=== PATIENT | male | born 1985 | race Caucasian/White ===

== ENCOUNTER 2018-10-20 04:23 | Day surgery (SDC) | payer SELFPAY ==
[2018-10-20] MEDS ORDERED: HYDROmorphone 1 MG/ML Syringe IVPUSH PRN (04:43)
[2018-10-20] MEDS ORDERED: Ondansetron 4 MG/2 ML SDV IVPUSH PRN (04:45)
[2018-10-20] MEDS: Lactated Ringers 1,000 ML IV SCH ×3 (05:22→18:57)
[2018-10-20] MEDS: Piperacillin/Tazobactam 3.375 GM in Sodium Chloride 0.9% 50 ML IV SCH ×4 (05:35→23:14)
[2018-10-20] MEDS ORDERED: Lactated Ringers 1,000 ML IV ONE (06:35)
[2018-10-20] MEDS ORDERED: Sodium Chloride 0.9% 10 ML Syringe FLUSH PRN (06:38)
[2018-10-20] MEDS ORDERED: Sodium Chloride 0.9% 10 ML SDV IV PRN (06:38)
[2018-10-20] MEDS ORDERED: Sodium Chloride 0.9% 2.5 ML Syringe FLUSH PRN (06:38)
--- NOTE | 2018-10-20 06:47 | PCM.PREANE ---
Preanesthetic Assessment - Anesthesia/Transfusion/Family Hx Anesthesia History: No Prior Anesthesia Family History of Anesthesia Reaction: No Transfusion History: No Prior Transfusion(s) Intubation History: Unknown - Review of Systems General: No Symptoms Pulmonary: No Symptoms Cardiovascular: No Symptoms Gastrointestinal: Abdominal Pain Neurological: No Symptoms Other: Reports: None - Physical Assessment Pulse: 108 O2 Sat by Pulse Oximetry: 100 Respiratory Rate: 18 Vital Signs: Last Vital Signs Temp 37.7 C 10/20/18 04:30 Pulse 108 H 10/20/18 04:30 Resp 18 10/20/18 04:30 BP 126/70 10/20/18 04:30 Pulse Ox 100 10/20/18 04:30 Height: 6 ft Weight: 68.946 kg ASA Class: 2E Mental Status: Alert & Oriented x3 Airway Class: Mallampati = 2 Dentition: Reports: Normal Dentition Thyro-Mental Finger Breadths: 3 Mouth Opening Finger Breadths: 2 ROM/Head Extension: Full Lungs: Clear to Auscultation, Normal Respiratory Effort Cardiovascular: Regular Rate, Regular Rhythm - Allergies Allergies/Adverse Reactions: Allergies Allergy/AdvReac Type Severity Reaction Status Date / Time No Known Allergies Allergy Verified 10/20/18 05:01 - Blood Blood Available: No - Anesthesia Plan Pre-Op Medication Ordered: None - Acknowledgements Anesthesia Type Planned: General Anesthesia Pt an Appropriate Candidate for the Planned Anesthesia: Yes Alternatives and Risks of Anesthesia Discussed w Pt/Guardian: Yes Pt/Guardian Understands and Agrees with Anesthesia Plan: Yes PreAnesthesia Questionnaire - Past Health History Medical/Surgical History: Denies Medical/Surgical History HEENT History: Reports: None Cardiovascular History: Reports: None Respiratory History: Reports: None Gastrointestinal History: Reports: Other (See Below) (acute appendicitis) Genitourinary History: Reports: None Musculoskeletal History: Reports: None Neurological History: Reports: None Psychiatric History: Reports: None Endocrine/Metabolic History: Reports: None Hematologic History: Reports: None Immunologic History: Reports: None Oncologic (Cancer) History: Reports: None - Infectious Disease History Infectious Disease History: Reports: None - Past Surgical History Head Surgeries/Procedures: Reports: None HEENT Surgical History: Reports: Oral Surgery Cardiovascular Surgical History: Reports: None Respiratory Surgical History: Reports: None GI Surgical History: Reports: None Male Surgical History: Reports: None Neurological Surgical History: Reports: None Oncologic Surgical History: Reports: None - SUBSTANCE USE Smoking Status *Q: Current Every Day Smoker (1 ppd) Tobacco Use Within Last Twelve Months: Cigarettes Recreational Drug Use History: No - HOME MEDS Home Medications: Home Meds . [No Known Home Meds] 10/20/18 [History] - CURRENT (IN HOUSE) MEDS Current Meds: Current Medications Hydromorphone HCl (Dilaudid) 0.5 mg IVPUSH Q1H PRN PRN Reason: Pain Lactated Ringer's (Ringers, Lactated) 1,000 mls @ 125 mls/hr IV ASDIRECTED [facility] Last Admin: 10/20/18 05:22 Dose: 125 mls/hr Piperacillin Sod/Tazobactam (Sod 3.375 gm/ Sodium Chloride) 50 mls @ 100 mls/ hr IV Q6H [facility] Last Admin: 10/20/18 05:35 Dose: 100 mls/hr Lactated Ringer's (Ringers, Lactated) 1,000 mls @ 1,000 mls/hr IV .BOLUS ONE Stop: 10/20/18 07:34 Ondansetron HCl (Zofran) 4 mg IVPUSH Q4H PRN PRN Reason: Nausea Sodium Chloride (Saline Flush) 10 ml FLUSH ASDIRECTED PRN PRN Reason: Keep Vein Open Sodium Chloride (Saline Flush) 2.5 ml FLUSH ASDIRECTED PRN PRN Reason: Keep Vein Open Sodium Chloride (Normal Saline) 10 ml IV ASDIRECTED PRN PRN Reason: IV Use
[2018-10-20] MEDS ORDERED: Propofol 200 MG/20 ML SDV ONE (06:52)
[2018-10-20] MEDS ORDERED: Midazolam 1 MG/ML 2 ML SDV ONE (06:52)
[2018-10-20] MEDS ORDERED: fentaNYL 250 MCG/5 ML SDV ONE ×2 (06:52→08:23)
[2018-10-20] MEDS ORDERED: Dexamethasone 4 MG/ML 5 ML MDV ONE (06:58)
[2018-10-20] MEDS ORDERED: Rocuronium 100 MG/10 ML Syringe ONE (06:58)
[2018-10-20] MEDS ORDERED: Ondansetron 4 MG/2 ML SDV ONE (06:58)
[2018-10-20] MEDS ORDERED: Glycopyrrolate 0.2 MG/ML SDV ONE (06:59)
[2018-10-20] MEDS ORDERED: Neostigmine Methylsulfate 1 MG/ML 5 ML Syringe ONE (06:59)
[2018-10-20] MEDS ORDERED: Bupivacaine 0.5% 10 ML SDV ONE (07:17)
[2018-10-20] MEDS ORDERED: fentaNYL 100 MCG/2 ML SDV IVPUSH PRN ×2 (07:18→08:56)
--- NOTE | 2018-10-20 07:31 | PCM.HP ---
H&P History of Present Illness - General Date of Service: 10/20/18 Admit Problem/Dx: Admission Diagnosis/Problem Admission Diagnosis/Problem Abdominal pain Source of Information: Patient History Limitations: Reports: No Limitations - History of Present Illness Initial Comments - Free Text/Narative: Patient is a 33 umesh old male who presents with acute appendicitis. He was wrestling with his son on Wednesday when he knee-ed him in the right groin. He continued to have discomfort there but then developed severe pain with fever, chills, nausea and vomiting yesterday. He presented to an OSH. He was mildly febrile with a temperature of 100.5 F on arrival. He was given fluids. He had rebound and tenderness in the RLQ. His WBC was normal at 8 but he had a left shift. A CT abdomen/pelvis was performed that showed a 10mm enlarged appendix with fat stranding concerning for appendicitis. He was transferred here for surgical management. Abdomen Pain Score (Numeric/FACES): 5 Back Pain Score (Numeric/FACES): 7 - Related Data Allergies/Adverse Reactions: Allergies Allergy/AdvReac Type Severity Reaction Status Date / Time No Known Allergies Allergy Verified 10/20/18 05:01 Home Medications: Home Meds . [No Known Home Meds] 10/20/18 [History] Past Medical History - Past Health History Medical/Surgical History: Denies Medical/Surgical History HEENT History: Reports: None Cardiovascular History: Reports: None Respiratory History: Reports: None Gastrointestinal History: Reports: Other (See Below) (acute appendicitis) Genitourinary History: Reports: None Musculoskeletal History: Reports: None Neurological History: Reports: None Psychiatric History: Reports: None Endocrine/Metabolic History: Reports: None Hematologic History: Reports: None Immunologic History: Reports: None Oncologic (Cancer) History: Reports: None - Infectious Disease History Infectious Disease History: Reports: None - Past Surgical History Head Surgeries/Procedures: Reports: None HEENT Surgical History: Reports: Oral Surgery Cardiovascular Surgical History: Reports: None Respiratory Surgical History: Reports: None GI Surgical History: Reports: None Male Surgical History: Reports: None Neurological Surgical History: Reports: None Oncologic Surgical History: Reports: None Social & Family History - Tobacco Use Smoking Status *Q: Current Every Day Smoker (1 ppd) Years of Tobacco use: 20 Packs/Tins Daily: 1 - Caffeine Use Caffeine Use: Reports: Soda, Tea - Recreational Drug Use Recreational Drug Use: No H&P Review of Systems - Review of Systems: Review Of Systems: ROS reveals no pertinent complaints other than HPI. Exam - Exam Exam: See Below - Vital Signs Vital Signs: Last Vital Signs Temp 37.7 C 10/20/18 04:30 Pulse 108 H 10/20/18 06:47 Resp 18 10/20/18 06:47 BP 126/70 10/20/18 04:30 Pulse Ox 100 10/20/18 06:47 Weight: 68.946 kg - Exam Quality Assessment: Supplemental Oxygen General: Alert, Oriented, Moderate Distress HEENT: Conjunctiva Clear, Mucosa Moist & [place], Posterior Pharynx Clear Lungs: Clear to Auscultation, Normal Respiratory Effort Cardiovascular: Regular Rate, Regular Rhythm GI/Abdominal Exam: Soft, No Distention, No Mass, Tender (RLQ) Extremities: Normal Inspection - Problem List (1) Appendicitis SNOMED Code(s): 89169452 ICD Code: K37 - UNSPECIFIED APPENDICITIS Status: Acute Current Visit: Yes Problem List Initiated/Reviewed/Updated: Yes Orders Last 24hrs: Active Orders 24 hr Category Date Time Status Admission Status [Patient Status] [ADT] Routine ADT 10/20/18 04:50 Active Antiembolic Devices [RC] PER UNIT ROUTINE Care 10/20/18 06:39 Active RT Incentive Spirometry [RC] Q1HWA Care 10/20/18 06:38 Active Up ad Nalini [RC] ASDIRECTED Care 10/20/18 04:49 Active Verify Patient Consent Obtain [RC] ASDIRECTED Care 10/20/18 06:38 Active NPO [Nothing Per Oral Diet] [DIET] Diet 10/20/18 Breakfast Active HYDROmorphone [Dilaudid] Med 10/20/18 04:43 Active 0.5 mg IVPUSH Q1H PRN Lactated Ringers [Ringers, Lactated] 1,000 ml Med 10/20/18 06:35 Active IV .BOLUS Lactated Ringers [Ringers, Lactated] 1,000 ml Med 10/20/18 04:45 Active IV ASDIRECTED Ondansetron [Zofran] Med 10/20/18 04:45 Active 4 mg IVPUSH Q4H PRN Piperacillin/Tazobactam [Piperacil-Tazobact] 3.375 gm Med 10/20/18 05:00 Active Sodium Chloride 0.9% [Normal Saline] 50 ml IV Q6H Sodium Chloride 0.9% [Normal Saline] Med 10/20/18 06:38 Active 10 ml IV ASDIRECTED PRN Sodium Chloride 0.9% [Saline Flush] Med 10/20/18 06:38 Active 10 ml FLUSH ASDIRECTED PRN Sodium Chloride 0.9% [Saline Flush] Med 10/20/18 06:38 Active 2.5 ml FLUSH ASDIRECTED PRN fentaNYL [Sublimaze] Med 10/20/18 07:18 Active 50 mcg IVPUSH Q5M PRN Peripheral IV Insertion Adult [OM.PC] Routine Oth 10/20/18 06:38 Ordered Sequential Compression Device [OM.PC] Routine Oth 10/20/18 06:38 Ordered Resuscitation Status Routine Resus Stat 10/20/18 06:38 Ordered Medication Orders Fentanyl (Sublimaze) 50 mcg IVPUSH Q5M PRN PRN Reason: Pain (severe 7-10) Stop: 10/20/18 12:00 Hydromorphone HCl (Dilaudid) 0.5 mg IVPUSH Q1H PRN PRN Reason: Pain Lactated Ringer's (Ringers, Lactated) 1,000 mls @ 125 mls/hr IV ASDIRECTED [facility] Last Admin: 10/20/18 05:22 Dose: 125 mls/hr Piperacillin Sod/Tazobactam (Sod 3.375 gm/ Sodium Chloride) 50 mls @ 100 mls/ hr IV Q6H [facility] Last Admin: 10/20/18 05:35 Dose: 100 mls/hr Lactated Ringer's (Ringers, Lactated) 1,000 mls @ 1,000 mls/hr IV .BOLUS ONE Stop: 10/20/18 07:34 Last Admin: 10/20/18 06:59 Dose: 1,000 mls/hr Ondansetron HCl (Zofran) 4 mg IVPUSH Q4H PRN PRN Reason: Nausea Sodium Chloride (Saline Flush) 10 ml FLUSH ASDIRECTED PRN PRN Reason: Keep Vein Open Sodium Chloride (Saline Flush) 2.5 ml FLUSH ASDIRECTED PRN PRN Reason: Keep Vein Open Sodium Chloride (Normal Saline) 10 ml IV ASDIRECTED PRN PRN Reason: IV Use Assessment/Plan Comment:: I explained the pathophysiology of appendicitis. The treatment is removal of the appendix. I will attempt this laparoscopically but will convert to open if I cannot complete it safely. We discussed the procedure, expected perioperative course, and risks including bleeding, infection or damage to surrounding structures. He verbalized understanding and wishes to proceed.
[2018-10-20] MEDS ORDERED: Phenylephrine/Normal Saline 100 MCG/ML 10 ML Syringe ONE (07:57)
--- NOTE | 2018-10-20 08:54 | PCM.OPNOTE ---
- General Post-Op/Procedure Note Date of Surgery/Procedure: 10/20/18 Operative Procedure(s): Laparoscopic appendectomy Findings: Enlarged and inflamed appendix. No evidence of perforation. Pre Op Diagnosis: Appendicitis Post-Op Diagnosis: same Anesthesia Technique: General ET Tube Primary Surgeon: Mara Garcia Pathology: appendix Fluid Replacement, Intraop: 1,800 Output, Urine Amount: 225 EBL in mLs: 5 Condition: Good Free Text/Narrative:: Intake & Output 10/19/18 10/20/18 10/20/18 22:59 06:59 14:59 Intake Total 50 Balance 50
--- NOTE | 2018-10-20 12:47 | OR ---
SURGEON: MARA GARCIA MD DATE OF PROCEDURE: 10/20/2018 PREOPERATIVE DIAGNOSIS: Acute appendicitis. POSTOPERATIVE DIAGNOSIS: Acute appendicitis. PROCEDURE PERFORMED: Laparoscopic appendectomy. PRIMARY SURGEON: Mara Garcia MD. ANESTHESIA: General endotracheal anesthesia. FLUIDS: 1800 mL of crystalloid. ESTIMATED BLOOD LOSS: 5 mL. URINE OUTPUT: 225 mL. FINDINGS: Acutely enlarged and inflamed appendix. No evidence of perforation. COMPLICATIONS: None. INDICATIONS: The patient is a 33-year-old male, who presents with 2 days' worth of severe right lower quadrant pain, fever, chills, nausea, and vomiting. Workup at an outside hospital included a CT scan which showed acute appendicitis. I explained the need for an appendectomy. I will attempt it laparoscopically, but should I be unable to perform it safely, I will convert to open. The patient and I discussed the expected perioperative course and risks including bleeding, infection, or damage to surrounding structures. The patient verbalized understanding and wishes to proceed. PROCEDURE IN DETAIL: The patient was brought into the OR and placed on the OR table in supine position. A time-out was completed verifying the patient's name, age, date of , allergies, and procedure to be performed. General endotracheal anesthesia was induced. The left arm was tucked to the patient's side and a Elkins catheter placed. The abdomen was prepped and draped in usual standard fashion. I anesthetized an area 3 fingerbreadths below the left subcostal margin in the midclavicular line with 0.5% Marcaine plain. A 1 cm incision was made using an 11 blade. I gained entry into the left upper quadrant using a 5 mm optical trocar. All layers of the abdominal wall were visualized upon entry. The abdomen was insufflated. I inserted a 5 mm 30-degree scope into the abdomen. I inspected the area underneath my initial trocar placement and no damage to surrounding structures was noted. A 5 mm trocar was placed just left and lateral of the umbilicus under direct visualization. A 12 mm trocar was placed in the left lower quadrant under direct visualization as well. The patient was placed into a Trendelenburg position and airplaned slightly to the left. I turned my attention to the right lower quadrant. I identified the cecum and followed the tenia down to the base of the appendix. The appendix was retrocecal. I was able to manipulate the appendix and bring it anterior. It appeared grossly enlarged and inflamed, but there was no evidence of perforation. Using a Harmonic scalpel device, I took down the appendiceal mesentery from proximal to distal. There were some small retroperitoneal attachments posteriorly that I was able to take down using a [place] dissector. Once the appendix was free from the appendiceal mesentery, I inspected the base. It appeared healthy and uninvolved. An endoscopic stapling device was placed in the abdomen and used to staple and transect across the base of the appendix. The appendix was then placed in an Endo Catch bag and removed through the 12 mm port site. I inspected my operative field. It was hemostatic and there was no evidence of any fluid in the abdomen. The decision was made not to irrigate. I closed the 12 mm port site with an interrupted 0 Vicryl suture using a Preet- Rod device. The 5 mm trocars were removed under direct visualization and the abdomen allowed to desufflate. The patient was then laid flat. I closed the 12 mm trocar site with interrupted 3-0 Vicryl in the subcutaneous fat layer and the skin was closed with a running 4-0 Monocryl stitch. The 5 mm trocar sites were closed with interrupted 4-0 Monocryl sutures. Steri-Strips and sterile dressings were applied. The patient tolerated the procedure well and was transferred to the PACU in stable condition. All counts were complete and correct at the end of the case. JUAN R BELLA /[id number]
[2018-10-20] MEDS: Acetaminophen/oxyCODONE 325-5 MG Tab PO PRN ×2 (14:43→18:57)
[2018-10-21] MEDS: Lactated Ringers 1,000 ML IV SCH (04:05)
[2018-10-21] MEDS: Piperacillin/Tazobactam 3.375 GM in Sodium Chloride 0.9% 50 ML IV SCH (04:07)
--- NOTE | 2018-10-21 06:43 | PCM48HPAN ---
Post Anesthesia Note - EVALUATION WITHIN 48HRS OF ANESTHETIC Vital Signs in Normal Range: Yes Patient Participated in Evaluation: Yes Respiratory Function Stable: Yes Airway Patent: Yes Cardiovascular Function Stable: Yes Hydration Status Stable: Yes Pain Control Satisfactory: Yes Nausea and Vomiting Control Satisfactory: Yes Mental Status Recovered: Yes Pulse Rate: 69 Resp Rate: 14 Temperature: 36.6 C Blood Pressure: 107/57 - COMMENTS/OBSERVATIONS Free Text/Narrative:: no anesthesia problems
--- NOTE | 2018-10-21 07:14 | PCM.PN ---
- General Info Date of Service: 10/21/18 Functional Status: Reports: Pain Controlled, Tolerating Diet, Ambulating, Urinating - Review of Systems General: Reports: No Symptoms Pulmonary: Reports: No Symptoms Cardiovascular: Reports: No Symptoms Gastrointestinal: Reports: No Symptoms Musculoskeletal: Reports: No Symptoms - Patient Data Vitals - Most Recent: Last Vital Signs Temp 36.6 C 10/21/18 06:43 Pulse 69 10/21/18 06:43 Resp 14 10/21/18 06:43 BP 107/57 L 10/21/18 06:43 Pulse Ox 97 10/21/18 04:00 Weight - Most Recent: 68.946 kg I&O - Last 24 Hours: Intake & Output 10/20/18 10/21/18 10/21/18 22:59 06:59 14:59 Intake Total 550 1700 Output Total 400 300 Balance 150 1400 Med Orders - Current: Current Medications Fentanyl (Sublimaze) 50 mcg IVPUSH Q1H PRN PRN Reason: Pain Lactated Ringer's (Ringers, Lactated) 1,000 mls @ 125 mls/hr IV ASDIRECTED [facility] Last Admin: 10/21/18 04:05 Dose: 125 mls/hr Piperacillin Sod/Tazobactam (Sod 3.375 gm/ Sodium Chloride) 50 mls @ 100 mls/ hr IV Q6H [facility] Last Admin: 10/21/18 04:07 Dose: 100 mls/hr Ondansetron HCl (Zofran) 4 mg IVPUSH Q4H PRN PRN Reason: Nausea Oxycodone/Acetaminophen (Percocet 325-5 Mg) 2 tab PO Q4H PRN PRN Reason: Pain Last Admin: 10/20/18 18:57 Dose: 2 tab Sodium Chloride (Saline Flush) 10 ml FLUSH ASDIRECTED PRN PRN Reason: Keep Vein Open Sodium Chloride (Saline Flush) 2.5 ml FLUSH ASDIRECTED PRN PRN Reason: Keep Vein Open Sodium Chloride (Normal Saline) 10 ml IV ASDIRECTED PRN PRN Reason: IV Use Discontinued Medications Bupivacaine HCl (Sensorcaine-Mpf 0.5%) Confirm Administered Dose 20 ml .ROUTE .STK-MED ONE Stop: 10/20/18 07:18 Dexamethasone (Dexamethasone) Confirm Administered Dose 20 mg .ROUTE .STK-MED ONE Stop: 10/20/18 06:59 Fentanyl (Sublimaze) Confirm Administered Dose 250 mcg .ROUTE .STK-MED ONE Stop: 10/20/18 06:53 Fentanyl (Sublimaze) 50 mcg IVPUSH Q5M PRN PRN Reason: Pain (severe 7-10) Stop: 10/20/18 12:00 Fentanyl (Sublimaze) Confirm Administered Dose 250 mcg .ROUTE .STK-MED ONE Stop: 10/20/18 08:24 Glycopyrrolate (Robinul) Confirm Administered Dose 0.6 mg .ROUTE .STK-MED ONE Stop: 10/20/18 07:00 Hydromorphone HCl (Dilaudid) 0.5 mg IVPUSH Q1H PRN PRN Reason: Pain Lactated Ringer's (Ringers, Lactated) 1,000 mls @ 1,000 mls/hr IV .BOLUS ONE Stop: 10/20/18 07:34 Last Admin: 10/20/18 06:59 Dose: 1,000 mls/hr Acetaminophen (Ofirmev) Confirm Administered Dose 100 mls @ as directed IV .STK- MED ONE Stop: 10/20/18 08:01 Midazolam HCl (Versed 1 Mg/Ml) Confirm Administered Dose 2 mg .ROUTE .STK-MED ONE Stop: 10/20/18 06:53 Neostigmine Methylsulfate (Neostigmine) Confirm Administered Dose 5 mg .ROUTE .STK-MED ONE Stop: 10/20/18 07:00 Ondansetron HCl (Zofran) Confirm Administered Dose 4 mg .ROUTE .STK-MED ONE Stop: 10/20/18 06:59 Phenylephrine HCl (Phenylephrine In Ns 100 Mcg/Ml) Confirm Administered Dose 1 mg .ROUTE .STK-MED ONE Stop: 10/20/18 07:58 Propofol (Diprivan 20 Ml) Confirm Administered Dose 200 mg .ROUTE .STK-MED ONE Stop: 10/20/18 06:53 Rocuronium [place] (Zemuron) Confirm Administered Dose 100 mg .ROUTE .STK-MED ONE Stop: 10/20/18 06:59 Succinylcholine Chloride (Succinylcholine Chloride) Confirm Administered Dose 200 mg .ROUTE .STK-MED ONE Stop: 10/20/18 06:59 - Exam General: Alert, Oriented HEENT: Pupils Equal, Pupils Reactive Lungs: Clear to Auscultation, Normal Respiratory Effort Cardiovascular: Regular Rate, Regular Rhythm GI/Abdominal Exam: Soft, Non-Tender, No Distention, No Mass Back Exam: Normal Inspection Extremities: Normal Inspection, Normal Range of Motion - Problem List & Annotations (1) Appendicitis SNOMED Code(s): 79183380 Code(s): K37 - UNSPECIFIED APPENDICITIS Status: Acute Current Visit: Yes - Problem List Review Problem List Initiated/Reviewed/Updated: Yes - My Orders Last 24 Hours: My Active Orders 10/20/18 06:38 RT Incentive Spirometry [RC] Q1HWA Sodium Chloride 0.9% [Normal Saline] 10 ml IV ASDIRECTED PRN Sodium Chloride 0.9% [Saline Flush] 10 ml FLUSH ASDIRECTED PRN Sodium Chloride 0.9% [Saline Flush] 2.5 ml FLUSH ASDIRECTED PRN Peripheral IV Insertion Adult [OM.PC] Routine Sequential Compression Device [OM.PC] Routine Resuscitation Status Routine 10/20/18 06:39 Antiembolic Devices [RC] PER UNIT ROUTINE 10/20/18 08:56 fentaNYL [Sublimaze] 50 mcg IVPUSH Q1H PRN 10/20/18 08:57 Acetaminophen/oxyCODONE [Percocet 325-5 MG] 2 tab PO Q4H PRN 10/20/18 Lunch Regular Diet [DIET] 10/21/18 07:06 Ready for Discharge [RC] PER UNIT ROUTINE - Plan Plan:: Patient is doing well. No pain. Tolerating diet. Vitals stable. Ok for discharge.
[2018-10-21] MEDS: Acetaminophen/oxyCODONE 325-5 MG Tab PO PRN (08:42)
== END 2018-10-21 09:15 | disposition home or self-care (01) ==
LOC: MW.SDS 04:23 → MW.ICU 04:30 → MW.MS 08:52 → MW.SDS 10-21 09:15
PROVIDERS: ATTEND Surgery
DX: K35.80 Unspecified acute appendicitis (principal); F17.210 Nicotine dependence, cigarettes, uncomplicated
CPT/HCPCS: 44970; 88304; A9270; C1776; J0131; J0330; J1100; J2250; J2370; J2405; J2543; J2704; J3010; J3490; J7050; J7120; 00840